=== PATIENT | female | born 1990 | race African-American/Black ===

== ENCOUNTER 2024-05-03 13:03 | Emergency (ER) | payer OTHER, SELFPAY ==
[2024-05-03 13:09] VITALS: BP 154/98
[2024-05-03 13:47] LABS: % Basophils 0.7 % (0-2); % Eosinophils 0.2 % (0-6); % Immature Granulocytes 0.2 % (0-0.5); % Lymphocytes 27.4 % (20.5-51.1); % Monocytes 9.5 % (1.7-9.3); Absolute Lymphocytes 1.2 10^3/uL (1.2-3.4); Absolute Monocytes 0.4 10^3/uL (0.1-0.6); Absolute Neutrophils 2.6 10^3/uL (1.4-6.5); Hematocrit 46.5 % (37.0-47.0); Hemoglobin 15.4 g/dL (12.0-16.0); Mean Corp Hgb Conc. 33.1 g/dL (33.0-37.0); Mean Corpuscular Hgb 26.6 pg (27.0-31.0); Mean Corpuscular Volume 80.3 fL (81.0-99.0); Nucleated Red Blood Cells % 0 %; Platelet Count 281 10^3/uL (130-400); Red Blood Cell Count 5.79 10^6/uL (4.20-5.40); Red Cell Dist. Width 13.5 % (11.5-14.5); White Blood Cell Count 4.2 10^3/uL (4.8-10.8)
[2024-05-03 13:59] LABS: COVID-19 Antigen Positive (Negative)
--- NOTE | 2024-05-03 16:20 | EDRN ---
Addendum entered by mAinta Flores RN 05/03/24 18:27:
Serge PABLO saw pt not Vishal PABLO.
Original Note:
Vishal PABLO in to see pt at this time.
--- NOTE | 2024-05-03 16:28 | ED.GENMED ---
History of Present Illness
<Deepthi Glass PA-C - Last Filed: 05/04/24 12:41>
General
Chief Complaint: Fever
Source: patient
Exam Limitations: none
Time Seen by Provider: 05/03/24 16:00
Nursing documentation reviewed up to this point in time: agreed with
History of Present Illness
History of Present Illness:
Patient is a 34 year old female presenting to the emergency department via ems for evaluation of flu-like symptoms for the past 5 days. Patient reports feeling unwell over the past week although worse today. She describes headache, nasal
congestion, cough. She does have some mild discomfort in her chest with breathing. She also has sore throat and generalized bodyaches. No true shortness of breath. Temp of 99 point today. Denies any GI upset including nausea, vomiting,
diarrhea. No lower extremity edema or swelling.
Patient does note that her had similar symptoms earlier in the week
Review of Systems
<Deepthi Glass PA-C - Last Filed: 05/04/24 12:41>
Review of Systems
Allergies reviewed?: Yes
All Other Systems: ROS reviewed and negative except as documented in HPI and ROS
Phy Exam
<Deepthi Glass PA-C - Last Filed: 05/04/24 12:41>
Physical Exam
Physical Exam:
Vitals: Hypertensive, otherwise stable vital signs. Afebrile
General: Patient is in no acute distress
Skin: Warm and dry, no rashes or lesions
Head: Normocephalic, atraumatic
Eyes: Sclera nonicteric. EOMs intact. No nystagmus.
Throat: No tonsillar edema or exudates. Uvula midline. Protecting airway
Neck: Normal ROM, no cervical spine tenderness, no meningismus
Cardiac: Regular rate and rhythm, no murmurs.
Pulm: Normal respiratory effort, no wheezes, rales, rhonchi heard on exam. O2 saturation 99 on room air.
Abdomen: Abdomen soft. No abdominal tenderness.
Extremities: No evidence of cyanosis or edema. Palpable DP pulses bilaterally
Neuro: AAOx3. Grossly intact.
Psychiatric: Normal affect.
Sepsis
<Deepthi Glass PA-C - Last Filed: 05/04/24 12:41>
Sepsis Screening
Sepsis Assessment: Sepsis Ruled Out
Sepsis Screen
Sepsis Screen: Sepsis Ruled Out
Date: 05/03/24
Time: 16:30
Course
<Deepthi Glass PA-C - Last Filed: 05/04/24 12:41>
Orders/Labs/Results
Orders:
Orders
05/03/24 13:13
Test Result ONCE
05/03/24 13:23
CBC/With Diff [Complete Blood Count/With Diff] Urgent
COVID-19 Antigen Urgent
Source: Nasal Swab
Influenza A+B Rapid Molecular Urgent
ABHIJIT Source: Nasal Swab
Specimen Description:
05/03/24 16:23
0.9% Sodium Chloride 1000 ml [Nss] 1,000 ml IV BOLUS
Ketorolac [Toradol] 15 mg IV NOW STA
CR Chest - 2 Views Urgent
Comment: COVID +
Reason For Exam: chest discomfort, cough
05/03/24 16:25
Test Result ONCE
05/03/24 16:53
Basic Metabolic Panel Urgent
HCG, Serum Qualitative Screen Urgent
05/03/24 17:11
Electrocardiogram (*1) Urgent
Reason for Study: Chest Pain
EKG- Treatment ONCE
05/03/24 18:04
Troponin I Urgent
Abnormal Lab Results
05/03/24 05/03/24
13:23 16:53
WBC 4.2 L 10^3/uL
(4.8-10.8)
RBC 5.79 H 10^6/uL
(4.20-5.40)
MCV 80.3 L fL
(81.0-99.0)
MCH 26.6 L pg
(27.0-31.0)
MPV 11.0 H fL
(7.4-10.4)
Monocytes % 9.5 H %
(1.7-9.3)
Carbon Dioxide 32 H mmol/L
(22-30)
Glucose 116 H mg/dl
(70-99)
SARS-CoV-2 Antigen Positive A
(Negative)
05/03/24 13:23
05/03/24 16:53
Vital Signs
Initial and Last Documented VS:
Initial Vital Signs
Temp Pulse Resp BP Pulse Ox
99.9 F 91 16 154/98 98
05/03/24 13:09 05/03/24 13:09 05/03/24 13:09 05/03/24 13:09 05/03/24 13:09
Last Documented Vital Signs
Temp Pulse Resp BP Pulse Ox
99.6 F 88 18 171/105 99
05/03/24 17:03 05/03/24 17:03 05/03/24 17:03 05/03/24 17:03 05/03/24 17:03
<Quinn Wiley MD - Last Filed: 05/03/24 17:16>
Orders/Labs/Results
Orders:
Orders
05/03/24 13:13
Test Result ONCE
05/03/24 13:23
CBC/With Diff [Complete Blood Count/With Diff] Urgent
COVID-19 Antigen Urgent
Source: Nasal Swab
Influenza A+B Rapid Molecular Urgent
ABHIJIT Source: Nasal Swab
Specimen Description:
05/03/24 16:23
0.9% Sodium Chloride 1000 ml [Nss] 1,000 ml IV BOLUS
Ketorolac [Toradol] 15 mg IV NOW STA
CR Chest - 2 Views Urgent
Comment: COVID +
Reason For Exam: chest discomfort, cough
05/03/24 16:25
Test Result ONCE
05/03/24 16:53
Basic Metabolic Panel Urgent
HCG, Serum Qualitative Screen Urgent
05/03/24 17:11
Electrocardiogram (*1) Urgent
Reason for Study: Chest Pain
EKG- Treatment ONCE
05/03/24 18:04
Troponin I Urgent
Abnormal Lab Results
05/03/24 05/03/24
13:23 16:53
WBC 4.2 L 10^3/uL
(4.8-10.8)
RBC 5.79 H 10^6/uL
(4.20-5.40)
MCV 80.3 L fL
(81.0-99.0)
MCH 26.6 L pg
(27.0-31.0)
MPV 11.0 H fL
(7.4-10.4)
Monocytes % 9.5 H %
(1.7-9.3)
Carbon Dioxide 32 H mmol/L
(22-30)
Glucose 116 H mg/dl
(70-99)
SARS-CoV-2 Antigen Positive A
(Negative)
05/03/24 13:23
05/03/24 16:53
Vital Signs
Initial and Last Documented VS:
Initial Vital Signs
Temp Pulse Resp BP Pulse Ox
99.9 F 91 16 154/98 98
05/03/24 13:09 05/03/24 13:09 05/03/24 13:09 05/03/24 13:09 05/03/24 13:09
Last Documented Vital Signs
Temp Pulse Resp BP Pulse Ox
99.6 F 88 18 171/105 99
05/03/24 17:03 05/03/24 17:03 05/03/24 17:03 05/03/24 17:03 05/03/24 17:03
<Deepthi Glass PA-C - Last Filed: 05/04/24 12:41>
MDM/Problems Addressed
Differential Diagnosis Includes:
Not limited to: Viral illness, pneumonia, dehydration, myocarditis, etc.
MDM/Problems Addressed:
34 female presenting with 5 days of viral URI symptoms, worse today. Hypertensive, otherwise stable vital signs. Afebrile. Physical exam as above. basic labs initiated in triage which show mild leukopenia. Patient positive for COVID which likely
explains majority of her symptoms. Influenza negative. Will check EKG, troponin given mild chest pain. Will check chest x-ray. Will treat headache with fluids, Toradol. Will closely monitor and reassess
Update: Troponin undetectable. EKG without any acute ischemic changes. Chest x-ray shows no acute abnormalities, no pneumonia. On reassessment�patient does say headache is much more dull although still mildly present. Ultimately�symptoms
consistent with COVID viral infection. No indication of associated pneumonia. Patient not tachycardic or hypoxic. Feel patient is stable for discharge home with supportive care, primary care follow-up. Advised p.o. fluids, Tylenol/Motrin as
needed for body aches, sore throat. Return precautions discussed.
Chronic conditions affecting care:
Hypertension
Acute Exacerbation and/or Progression of Chronic Illness:
Acutely hypertensive
<Deepthi Glass PA-C - Last Filed: 05/04/24 12:41>
*Radiology
Radiology exam reviewed: preliminary read by ED provider (Chest x-ray reviewed by nd-no acute abnormality) and radiology read reviewed
*Pulse Oximetry
Patient hypoxic: no
*EKG
Interpreted by ED Provider?: Yes
EKG Intrepretation Date: 05/03/24
Interpretation: normal
Comparison EKG: no comparison EKG present
Heart Rate: 81
Rate: normal
Rhythm: sinus
[place]: normal axis
Interval: normal QT interval
QRS Pattern: normal QRS
Ischemia: no ischemia
*Well Site Drilling Engineer Interpretation
Rate: Well Site Drilling Engineer- N/A
*Critical Care Note
Total Time (30-74mins, 75-104mins- exclusive of procedures): Not Applicable
ED Attending Note
<Deepthi Glass PA-C - Last Filed: 05/04/24 12:41>
-
Portions of this chart may have been created with voice recognition software.� Occasional wrong word or��sound alike� substitutions may have occurred due to the inherent limitations of voice recognition software.
<Quinn Wiley MD - Last Filed: 05/03/24 17:16>
ED Attending Note
Patient seen and examined by attending physician: Yes
ED Attending Note:
I have seen and evaluated the patient with a [id number] encounter. I have spoken to the advance practicer provider and involved in the medical history, the physical exam, medical decision making.
Evaluation and management service: agree unless noted differently below.
Results interpretation: agree unless noted differently below.
Focused HPI: 34-year-old female with past medical history of hypertension presents to the ER for evaluation of flulike illness. Patient reports she has been sick for about a week but yesterday started to feel bit worse. She says she has had
fatigue, myalgias, cough, congestion, sore throat, tactile fever. She says she has had a headache. She tells me that she has had some chest pain. She denies any shortness of breath outside the setting of some mild dyspnea with coughing fits. She
says that after symptoms were worsening yesterday decided she should come to the ER for evaluation. She has not had any GI issues�denies any nausea, vomiting, diarrhea.
Physical exam: Awake alert no distress. Hypertensive otherwise normal vitals. She has no cardiac rubs gallops or murmurs. Lungs clear to auscultation bilaterally although she did have occasional hacking cough during lung auscultation. Mucous
membranes are moist, no tonsillar erythema or exudate.
Medical Decision Makin-year-old female presents to the ER for evaluation of flulike illness. Labs sent off including a CBC which shows marginal leukopenia, CMP pending, COVID was positive which is likely etiology of her symptoms. She did
report some chest pain added troponin and EKG as well as a chest x-ray. Will treat symptomatically and hydrate. Likely stable for discharge if workup negative for emergent pathology.
Discharge Plan
Departure
Patient Disposition: Home (Routine Discharge)
Date of Disposition: 05/03/24
Time of Disposition: 18:48
Patient with high blood pressure during this ER visit?: Yes
Condition: Good
Covid-19: Confirmed COVID-19
Discharge Problem:
COVID-19
Instructions: COVID-19 - ED discharge instructions, BLOOD PRESSURE
Referrals:
Carmelita Sood CRNP [Family Provider] - Follow up in 2-3 days
Stand Alone Forms: Return to Work
Activity Restrictions/Additional Instructions:
Return to the emergency department with any high fevers, severe headache, changes in mental status, chest pain, shortness of breath, worsening in current symptoms, or any other concerns
-As discussed your COVID test was positive while in the emergency department today. This likely explains all of your symptoms.
-Is important for you to stay well-hydrated. Continue to take Tylenol and/or Motrin as needed for body aches and fever.
-Follow-up with your primary care provider for further evaluation/management and to ensure that symptoms are improving
Monitor your symptoms closely return to the emergency department any acute worsening/new symptoms or any other concerns
Interventions
Interventions:
*Risk Screen - Suicide Last Done: 05/03/24 13:09
*General Assessment Last Done: 05/03/24 17:09
*Neglect/Abuse Screening Last Done: 05/03/24 13:09
ED- Fall Risk Assessment Last Done: 05/03/24 17:09
*ED COVID-19 Vaccine History Last Done: 05/03/24 17:09
*Nursing Disposition Last Done: 05/03/24 19:15
ED- Neurological Assessment Last Done: 05/03/24 17:09
ED-Skin Assessment Last Done: 05/03/24 17:09
Discharge Date and Time
Discharge Date/Time: 05/03/24 19:15
Print Language: TAIWANESE
[2024-05-03] MEDS: NSS 1000 IV (16:59)
[2024-05-03] MEDS: TORADOL 15 MG IV (16:59)
[2024-05-03 17:03] VITALS: BP 171/105
[2024-05-03 17:06] VITALS: BMI 41.7
--- NOTE | 2024-05-03 17:07 | EDRN ---
Dr. Wiley in room w/ pt at this time.
--- NOTE | 2024-05-03 17:07 | EDRN ---
Pt has been feeling bad for about a week and last night got worse. Pt has headache, on and off nausea, sore throat, body aches, cough (if coughs alot has SOB). Dr. Wiley in room w/ pt.
[2024-05-03 17:19] LABS: HCG, Serum Qualitative Screen Negative
[2024-05-03 17:22] LABS: Blood Urea Nitrogen 10 mg/dl (7-17); Calcium 8.8 mg/dl (8.4-10.2); Carbon Dioxide 32 mmol/L (22-30); Chloride 100 mmol/L (98-107); Estimated Creatinine Clearance > 125 ml/min; Glucose 116 mg/dl (70-99); Potassium 3.6 mmol/L (3.5-5.1); Sodium 139 mmol/L (135-145); eGFR > 60.00
[2024-05-03 18:41] LABS: Troponin I < 0.012 ng/ml
== END 2024-05-03 19:15 | disposition home or self-care (01) ==
LOC: EMR 13:03
PROVIDERS: Emergency Medicine; Physician Assistant; EMERGENCY PHYSICIAN Emergency Medicine; FAMILY PHYSICIAN Nurse Practitioner Primary Care
DX: U07.1 COVID-19 (principal)
CPT/HCPCS: 99285; 96374; 96361 ×2; 71046; 80048; 84484; 84703; 85025; 87502; 87811; 93005

== ENCOUNTER 2024-10-06 22:22 | Emergency (ER) | payer OTHER, SELFPAY ==
[2024-10-06 22:25] VITALS: BP 145/89
[2024-10-06 22:42] VITALS: BP 140/79
--- NOTE | 2024-10-06 23:12 | ED.GENMED ---
History of Present Illness
Rajeshlt;Starla Buchanan PA-C - Last Filed: 10/07/24 02:17>
General
Chief Complaint: Abdominal Pain
Source: patient
Exam Limitations: none
Time Seen by Provider: 10/06/24 22:59
Nursing documentation reviewed up to this point in time: agreed with
History of Present Illness
History of Present Illness:
Note:
CHIEF COMPLAINT(S)
Pelvic pain and heavy bleeding.
HISTORY OF PRESENT ILLNESS
The patient is a 34-year-old female with a known history of polycystic ovary syndrome (PCOS) who presents with pelvic pain and heavy vaginal bleeding. The pain started at 9 a.m. today, and the patient describes it as located in the pelvic region.
She tried acetaminophen with codine which took the edge off of the pain. The bleeding began last week with spotting and worsened yesterday, becoming very heavy today. The patient does not recall when her last menstrual period was. The patient
reports going through nearly a full pack of seven sanitary briefs since 9 a.m. this morning. She denies any burning with urination, fever, or pain radiating to the back. No nausea or vomiting was reported. The patient states she has no other known
medical problems.
Her last period was 11 years ago. She follows with [facility].
PHYSICAL EXAM
Nursing notes reviewed and vital signs reviewed.
General: Patient is well appearing and in no acute distress; non-toxic
Skin: Warm and dry, no rashes or lesions
Head: Normocephalic, atraumatic
Eyes: Sclera non-icteric. EOMs intact.
Cardiac: Regular rate and rhythm, no murmurs
Pulm: Normal respiratory effort, no wheezes, or rhonchi
Abdomen: Abdomen is soft and non-tender to palpation
Genitourinary: Pelvic: Adnexal tenderness to palpation bilaterally. External genitalia normal appearing without lesions, ulcerations, or adenopathy. Vaginal vault without lesions, ulcerations; active vaginal bleeding noted, pooling of blood and
clots around the cervix. Cervix appears normal to inspection without lesions. No cervical motion tenderness
Neuro: CN II-XII intact, no focal neurologic deficits.
Psychiatric: Appropriate mood and affect.
PLAN
1. Initiate intravenous access for rehydration and medication administration.
2. Administer pain medication.
3. Obtain blood work.
4. Schedule an urgent ultrasound of the pelvic region.
5. Monitor bleeding and consider gynecological consultation if bleeding persists or worsens.
DIFFERENTIAL DIAGNOSIS
The Differential Diagnosis includes, in no particular order and is not limited to:
1. Polycystic Ovary Syndrome exacerbation
2. Dysfunctional uterine bleeding
3. Endometrial hyperplasia
4. Endometriosis
5. Uterine fibroids
6. Ovarian cyst rupture
7. Pelvic inflammatory disease
8. Ectopic
9. Coagulation disorder
10. Cervical polyp
CHART REVIEW
-reviewed 05/03/24, patient seen for upper respiratory symptoms, diagnosed with COVID
MDM/DISPOSITION
34-year-old female with a history of PCOS has not caught a period in over 11 years presents emergency department today with concerns of heavy vaginal bleeding and pelvic pain. She has not . Her ultrasound revealed a mildly heterogenous
endometrial thickening measuring 1.6 cm in thickness with focal hemorrhagic clot within the lower uterine segment. There also was a hemorrhagic cyst in the right ovary. Suspect dysmenorrhea/PCOS exacerbation. Patient states that she recently
started a weight loss medication and states that she has been losing weight so this may explain why her period has returned. Did stress importance of following up with her PEDIATRIC DENTAL HYGIENIST. Considering the amount of bleeding, we will initiate Lysteda.
Patient stable for discharge.
UPDATE
11:35 pm-- Patient more comfortable after pain mediation, was able to perform pelvic exam
Review of Systems
<Starla Buchanan PA-C - Last Filed: 10/07/24 02:17>
Review of Systems
All Other Systems: ROS reviewed and negative except as documented in HPI and ROS
Phy Exam
<Starla Buchanan PA-C - Last Filed: 10/07/24 02:17>
Physical Exam
Physical Exam:
see hpi
Course
<Starla Buchanan PA-C - Last Filed: 10/07/24 02:17>
Orders/Labs/Results
Orders:
Orders
10/06/24 23:01
, Urine Qualitative Screen [HCG, Urine Qualitative Screen] Urgent
10/06/24 23:02
Urinalysis Reflex To Culture Urgent
Test Result ONCE
10/06/24 23:09
0.9% Sodium Chloride 500 ml [Nss] 500 ml IV BOLUS
HYDROmorphone [Dilaudid] 0.5 mg IV NOW STA
10/06/24 23:26
ABO2 Urgent
BBK Wristband Number:
Associate notified that ABO2 has been ordered: AYO GUILLEN
Date: 10/07/24
Time: 01:19
Roto [employer] Press Operator ID: [id number]
Basic Metabolic Panel Urgent
Comment: NO K
Complete Blood Count/With Diff Urgent
HCG, Serum Qualitative Screen Urgent
Comment: ADD ON
10/06/24 23:36
US Pelvis W Transvag Combined Urgent
Comment:
Reason For Exam: severe bilateral adenexal pain
10/06/24 23:39
Add On- LAB Urgent
Tests Added?: BETA HCG QUAL
10/06/24 23:50
Type+Screen Routine
Doodle MobileK Wristband Number:
10/07/24 00:58
Ketorolac [Toradol] 30 mg IV NOW STA
Tranexamic Acid [Cyklokapron] 650 mg PO NOW STA
Abnormal Lab Results
10/06/24
23:26
MCV 79.4 L fL
(81.0-99.0)
MPV 11.3 H fL
(7.4-10.4)
Chloride 110 H mmol/L
(98-107)
Carbon Dioxide 21 L mmol/L
(22-30)
Glucose 100 H mg/dl
(70-99)
10/06/24 23:26
10/06/24 23:26
Vital Signs
Initial and Last Documented VS:
Initial Vital Signs
Temp Pulse Resp BP Pulse Ox
98.7 F 70 16 145/89 98
10/06/24 22:25 10/06/24 22:25 10/06/24 22:25 10/06/24 22:25 10/06/24 22:25
Last Documented Vital Signs
Temp Pulse Resp BP Pulse Ox
98.1 F 68 16 126/76 98
10/07/24 02:02 10/07/24 02:02 10/07/24 02:02 10/07/24 02:00 10/07/24 02:02
<Shyann Espinal, DO - Last Filed: 10/07/24 01:12>
Orders/Labs/Results
Orders:
Orders
10/06/24 23:01
, Urine Qualitative Screen [HCG, Urine Qualitative Screen] Urgent
10/06/24 23:02
Urinalysis Reflex To Culture Urgent
Test Result ONCE
10/06/24 23:09
0.9% Sodium Chloride 500 ml [Nss] 500 ml IV BOLUS
HYDROmorphone [Dilaudid] 0.5 mg IV NOW STA
10/06/24 23:26
ABO2 Urgent
BBK Wristband Number:
Associate notified that ABO2 has been ordered: AYO GUILLEN
Date: 10/07/24
Time: 01:19
Roto [employer] Press Operator ID: [id number]
Basic Metabolic Panel Urgent
Comment: NO K
Complete Blood Count/With Diff Urgent
HCG, Serum Qualitative Screen Urgent
Comment: ADD ON
10/06/24 23:36
US Pelvis W Transvag Combined Urgent
Comment:
Reason For Exam: severe bilateral adenexal pain
10/06/24 23:39
Add On- LAB Urgent
Tests Added?: BETA HCG QUAL
10/06/24 23:50
Type+Screen Routine
BBK Wristband Number:
10/07/24 00:58
Ketorolac [Toradol] 30 mg IV NOW STA
Tranexamic Acid [Cyklokapron] 650 mg PO NOW STA
Abnormal Lab Results
10/06/24
23:26
MCV 79.4 L fL
(81.0-99.0)
MPV 11.3 H fL
(7.4-10.4)
Chloride 110 H mmol/L
(98-107)
Carbon Dioxide 21 L mmol/L
(22-30)
Glucose 100 H mg/dl
(70-99)
10/06/24 23:26
10/06/24 23:26
Vital Signs
Initial and Last Documented VS:
Initial Vital Signs
Temp Pulse Resp BP Pulse Ox
98.7 F 70 16 145/89 98
10/06/24 22:25 10/06/24 22:25 10/06/24 22:25 10/06/24 22:25 10/06/24 22:25
Last Documented Vital Signs
Temp Pulse Resp BP Pulse Ox
98.1 F 68 16 126/76 98
10/07/24 02:02 10/07/24 02:02 10/07/24 02:02 10/07/24 02:00 10/07/24 02:02
<Starla Buchanan PA-C - Last Filed: 10/07/24 02:17>
*Pulse Oximetry
SaO2: 98
Oxygen Mode of Delivery: Room air
Patient hypoxic: no
*Critical Care Note
Total Time (30-74mins, 75-104mins- exclusive of procedures): Not Applicable
ED Attending Note
<Starla Buchanan PA-C - Last Filed: 10/07/24 02:17>
-
Portions of this chart may have been created with voice recognition software.� Occasional wrong word or��sound alike� substitutions may have occurred due to the inherent limitations of voice recognition software.
<Shyann Espinal DO - Last Filed: 10/07/24 01:12>
ED Attending Note
Patient seen and examined by attending physician: Yes
I performed a history and physical exam of patient and discussed management with resident, I reviewed resident's note and agree with documented findings and plan of care.: Yes
ED Attending Note:
34-year-old female with history of hypertension, PCOS, follows with [facility]. Reports amenorrhea for approximately 13 years but then began with some vaginal spotting 1 week ago, heavy vaginal bleeding accompanied with moderate crampy
pelvic pain today. No dizziness nor lightheadedness. No fever nor chills. No nausea nor vomiting.
Patient appears moderately uncomfortable however vital signs within normal limits, without tachycardia nor significant hypertension nor hypotension. Afebrile.
Abdomen is obese, soft, moderate tenderness suprapubic without rebound or guarding.
Concern for dysmenorrhea/menometrorrhagia, ectopic , ovarian torsion, exacerbation of PCOS.
Labs are unremarkable with normal CBC, unremarkable chemistries. hCG is negative.
Pelvic ultrasound shows mildly heterogenous echogenic avascular endometrial thickening or hemorrhage measuring up to 1.6 cm in thickness. Focal hemorrhagic clot within the lower uterine segment measuring 3 x 2 cm. Trace free fluid in the pelvis.
There is an enlarged right ovary containing a 4 cm hemorrhagic cyst. Normal ovarian arterial and venous waveforms bilaterally. No evidence of torsion.
Has been given an IV dose of Dilaudid. Will trial small IV dose of Toradol for pain as well as initiate TXA for vaginal bleeding.
Discharge Plan
Departure
Patient Disposition: Home (Routine Discharge)
Date of Disposition: 10/07/24
Time of Disposition: 01:34
Patient with high blood pressure during this ER visit?: Yes
Condition: Good
Discharge Problem:
Abnormal uterine bleeding (AUB), Pelvic pain, Hemorrhagic cyst of ovary
Instructions: Polycystic ovary syndrome, Painful periods, BLOOD PRESSURE
Prescriptions:
New
tranexamic acid 650 mg tablet
1,300 mg PO TID 5 Days Qty: 30 0RF
ibuprofen 600 mg tablet
600 mg PO Q6H PRN (Reason: Pain) Qty: 14 0RF
Referrals:
Carmelita Sood CRNP [Family Provider]
Stand Alone Forms: Return to Work
Activity Restrictions/Additional Instructions:
TXA has been sent to your pharmacy. Please take 1300 mg 3 times daily for 5 days.
Please call your PEDIATRIC DENTAL HYGIENIST later today to schedule follow-up appointment.
PLEASE RETURN TO THE EMERGENCY DEPARTMENT SHOULD YOU DEVELOP ACUTE WORSENING OF SYMPTOMS, PERSISTENT BLEEDING, LIGHTHEADEDNESS DIZZINESS OR LOSS OF CONSCIOUSNESS, CHEST PAIN OR SHORTNESS OF BREATH, OR ANY OTHER SIGNS OR SYMPTOMS WORRISOME TO YOU.
Interventions
Interventions:
*Risk Screen - Suicide Last Done: 10/06/24 22:27
*General Assessment Last Done: 10/06/24 23:00
*Neglect/Abuse Screening Last Done: 10/06/24 22:27
*ED- Fall Risk Assessment Last Done: 10/06/24 23:38
*ED COVID-19 Vaccine History Last Done: 10/06/24 23:38
ME-Xnkwkm-Mdcosigbyh Assessment Last Done: 10/06/24 22:39
Discharge Date and Time
Print Language: VINCENTIAN
[2024-10-06] MEDS: DILAUDID 0.5 MG IV (23:21)
[2024-10-06] MEDS: NSS 500 IV (23:25)
[2024-10-06 23:34] LABS: Hematocrit 40.8 % (37.0-47.0); Hemoglobin 14.3 g/dL (12.0-16.0); Mean Corp Hgb Conc. 35.0 g/dL (33.0-37.0); Mean Corpuscular Volume 79.4 fL (81.0-99.0); Nucleated Red Blood Cells % 0 %; Platelet Count 296 10^3/uL (130-400); Red Cell Dist. Width 13.2 % (11.5-14.5)
[2024-10-06 23:51] LABS: Blood Urea Nitrogen 10 mg/dl (7-17); Calcium 8.6 mg/dl (8.4-10.2); Carbon Dioxide 21 mmol/L (22-30); Chloride 110 mmol/L (98-107); Glucose 100 mg/dl (70-99); Sodium 137 mmol/L (135-145); eGFR > 60.00
[2024-10-07 00:13] LABS: HCG, Serum Qualitative Screen Negative
[2024-10-07] MEDS: TORADOL 30 MG IV (01:04)
[2024-10-07] MEDS: CYKLOKAPRON 650 MG PO (01:11)
[2024-10-07 02:00] VITALS: BP 126/76
== END 2024-10-07 02:17 | disposition home or self-care (01) ==
LOC: EMR 22:22
PROVIDERS: Physician Assistant; EMERGENCY PHYSICIAN Emergency Medicine; FAMILY PHYSICIAN Nurse Practitioner Primary Care
DX: N93.9 Abnormal uterine and vaginal bleeding, unspecified (principal); E28.2 Polycystic ovarian syndrome; R10.2 Pelvic and perineal pain
CPT/HCPCS: 99284; 96374; 96375; 76830; 76856; 80048; 84703; 85025; 86850; 86900; 86901

== ENCOUNTER 2024-10-10 20:07 | Emergency (ER) | payer OTHER, SELFPAY ==
[2024-10-10 20:11] VITALS: BP 141/99
[2024-10-10 20:39] LABS: Hematocrit 42.6 % (37.0-47.0); Hemoglobin 14.5 g/dL (12.0-16.0); Mean Corp Hgb Conc. 34.0 g/dL (33.0-37.0); Mean Corpuscular Volume 81.0 fL (81.0-99.0); Nucleated Red Blood Cells % 0 %; Platelet Count 336 10^3/uL (130-400); Red Cell Dist. Width 13.2 % (11.5-14.5)
[2024-10-10 20:46] LABS: HCG, Serum Qualitative Screen Negative
[2024-10-10 20:51] LABS: ALT (SGPT) 23 U/L (0-35); AST (SGOT) 19 U/L (14-36); Albumin 4.5 g/dl (3.5-5.0); Alkaline Phosphatase 75 U/L (38-126); Blood Urea Nitrogen 12 mg/dl (7-17); Calcium 9.0 mg/dl (8.4-10.2); Carbon Dioxide 28 mmol/L (22-30); Chloride 107 mmol/L (98-107); Glucose 97 mg/dl (70-99); Potassium 4.3 mmol/L (3.5-5.1); Sodium 140 mmol/L (135-145); Total Protein 7.3 g/dl (6.3-8.2); eGFR > 60.00
--- NOTE | 2024-10-10 22:51 | ED.GENMED ---
History of Present Illness
General
Chief Complaint: Abdominal Pain
Source: patient
Exam Limitations: none
Time Seen by Provider: 10/10/24 22:47
Nursing documentation reviewed up to this point in time: agreed with
History of Present Illness
History of Present Illness:
Note:
CHIEF COMPLAINT(S)
Lower abdominal pain and uterine bleeding.
HISTORY OF PRESENT ILLNESS
The patient is a 34-year-old female who presents with complaints of severe lower abdominal pain and heavy uterine bleeding. She reports that the pain started the day after her previous visit, which was on October 07, and it has persisted since then.
The pain is described as being across the entire lower abdomen. The patient has not experienced any fever, chills, nausea, vomiting, chest pain, or shortness of breath. She reports normal bowel movements and urination without difficulty. However,
she notes significant bleeding. 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 Currently, she has not been experiencing regular
menstruation and this episode is the first she has had in a long time. She has not yet had the opportunity to consult with her SILO OPERATOR regarding her current symptoms.
EXTERNAL RECORDS REVIEWED
The patient mentioned a previous ultrasound that was reportedly negative.
PAST SURGICAL HISTORY
The patient had a portion of her cervix removed around 2015 or 2016 due to cancerous cells.(LEEP)
PLAN
1. Obtain a computed tomography (CT) scan to further evaluate the abdominal pain and uterine bleeding.
2. Administer medication for pain and nausea management.
DIFFERENTIAL DIAGNOSIS
The Differential Diagnosis includes, in no particular order and is not limited to:
1. Uterine fibroids
2. Ovarian cysts
3. Endometriosis
4. Pelvic inflammatory disease
5. Ectopic
6. Adenomyosis
7. Cervical dysplasia
8. Ovarian torsion
9. Urinary tract infection
10. Gastrointestinal causes such as diverticulitis
CARE-UPDATE
10/10/24 - 22:58
US on 10/06/24 :Endometrial thickening noted with the presence of echogenic material indicative of clot formation. Presence of free fluid in the pelvis suggests potential underlying complication. Right ovary demonstrates a probable hemorrhagic cyst.
Further evaluation and monitoring recommended to assess stability and guide potential intervention.
CARE-UPDATE
10/11/24 - 02:16
The patients recent scans are normal. She is unsure of her OB-GYNs name but confirms she is based at [place]. Continued use of prescribed stomach acid medication, although symptoms persist without improvement in bleeding or reduction in severity.
No fever reported. Plan to discuss with OB-METAL PRODUCTS VIEWER for further assessment.
CARE-UPDATE
10/11/24 - 02:34
Consulted with gynecology, who advised no further action if the patient is not . Recommended providing the patient with a copy of her CT scan and results for follow-up with her OB. Prescribed Percocet for pain management over the next few
days.
Disposition:
SUMMARY OF ENCOUNTER
A 34-year-old female presented with complaints of lower abdominal pain and uterine bleeding persisting for over a week. She was previously seen and underwent an ultrasound, and was started on tranexamic acid (TXA). She follows up with an SILO OPERATOR at
[facility] and will have an appointment this week. During her visit today, a test was negative. Pain was relieved with oxycodone/acetaminophen.
DISPOSITION
Discharge in stable condition.
ASSESSMENT
Patient presents with lower abdominal pain and uterine bleeding, with a history of uterine leiomyoma and previous cervical procedure due to cancerous cells.
EMERGENCY TREATMENTS ADMINISTERED
Oxycodone/acetaminophen (Percocet) was provided for pain management.
MANAGEMENT OF THE PATIENTS CARE WAS DISCUSSED WITH
Consultation with SILO OPERATOR recommended close follow-up with her own hooker on.
PLAN
The patient will follow up with her SILO OPERATOR this week for further evaluation and management.
INDEPENDENT REVIEW OF LABS AND INTERPRETATION OF TESTS
My independent review of the test is negative.
FOLLOW-UP INSTRUCTIONS
The patient is advised to follow up with her SILO OPERATOR at [facility] this week.
MEDICATION RECONCILIATION
Oxycodone/acetaminophen was administered for pain relief during the visit.
MEDICAL DECISION MAKING
-Complexity of Data Reviewed: Chronic conditions affecting care [uterine leiomyoma, history of cervical dysplasia]. Differential diagnosis includes uterine fibroids, ovarian cysts, endometriosis, pelvic inflammatory disease, ectopic ,
adenomyosis, cervical dysplasia, ovarian torsion, urinary tract infection, gastrointestinal causes such as diverticulitis.
-Data:
Category 3
Discussion of management with SILO OPERATOR regarding further follow-up and evaluation plan.
-Risk:
Prescription medication management was used as part of the pain management strategy.
DIAGNOSIS
Lower abdominal pain (ICD-10: R10.30)
Abnormal uterine bleeding, unspecified (ICD-10: N93.9)
Review of Systems
Review of Systems
Allergies reviewed?: Yes
All Other Systems: ROS reviewed and negative except as documented in HPI and ROS
Constitutional: Reports no symptoms
EENT: Reports no symptoms
Respiratory: Reports no symptoms
Cardiac: Reports no symptoms
ABD/GI: Reports abdominal pain
: Reports bleeding
Musculoskeletal: Reports no symptoms
Skin: Reports no symptoms
Neurological: Reports no symptoms
Endocrine: Reports no symptoms
Hematologic/Lymphatic: Reports no symptoms
Psychiatric: Reports no symptoms
Phy Exam
General Physical Exam
General Presentation: moderate distress
General age: appears stated age
General Skin: warm and dry
General Habitus: normal
General Mental: alert
General Hydration: appears well hydrated
ENT Exam
ENT Exam: EOMI, pharynx normal, neck supple and normocephalic
Eye Exam
Eye Exam: PERRL, cornea clear and conjunctiva normal
Cardiovascular Exam
Cardiovascular Exam: regular rate/rhythm, no edema, no murmur and normal peripheral pulses
Pulmonary Exam
Pulmonary Exam: lungs clear, no respiratory distress, no rales, no crackles, no rhonchi, no stridor, no wheezing and no cough
Gastrointestinal Exam
Gastrointestinal Exam: normal bowel sounds, non tender, soft, no organomegaly, no pulsatile mass and non distended
Neurological Exam
Neurological Exam: alert, oriented x3, no motor deficits and speech normal
Musculoskeletal Exam
Musculoskeletal Exam: full ROM and no edema
Skin Exam
Skin Exam: normal color, warm/dry, no rash and no petechia
Psychiatric Exam
Psychiatric Exam: normal mood/affect
Course
Orders/Labs/Results
Orders:
Orders
10/10/24 20:14
Test Result ONCE
10/10/24 20:20
CMP [Comprehensive Metabolic Panel] Urgent
Complete Blood Count/With Diff Urgent
HCG, Serum Qualitative Screen Urgent
Comment: Notify provider if positive test present
10/10/24 22:58
HYDROmorphone [Dilaudid] 1 mg IV NOW STA
Ondansetron Injectable [Zofran] 4 mg IV NOW STA
10/11/24 00:00
CT Abd/pelvis W Iv Cont Urgent
Reason For Exam: lower abd pain
Abnormal Lab Results
10/10/24
20:20
WBC 4.1 L 10^3/uL
(4.8-10.8)
MPV 10.8 H fL
(7.4-10.4)
Monocytes % 9.4 H %
(1.7-9.3)
10/10/24 20:20
10/10/24 20:20
Vital Signs
Initial and Last Documented VS:
Initial Vital Signs
Temp Pulse Resp BP Pulse Ox
98.8 F 83 16 141/99 98
10/10/24 20:11 10/10/24 20:11 10/10/24 20:11 10/10/24 20:11 10/10/24 20:11
Last Documented Vital Signs
Temp Pulse Resp BP Pulse Ox
97.7 F 63 17 144/89 100
10/11/24 01:13 10/11/24 01:13 10/11/24 01:13 10/11/24 01:13 10/11/24 01:13
*Pulse Oximetry
SaO2: 98
Oxygen Mode of Delivery: Room air
Patient hypoxic: no
*Critical Care Note
Total Time (30-74mins, 75-104mins- exclusive of procedures): Not Applicable
ED Attending Note
-
Portions of this chart may have been created with voice recognition software.� Occasional wrong word or��sound alike� substitutions may have occurred due to the inherent limitations of voice recognition software.
Discharge Plan
Departure
Patient Disposition: Home (Routine Discharge)
Date of Disposition: 10/11/24
Time of Disposition: 02:37
Patient with high blood pressure during this ER visit?: Yes
Condition: Good
Discharge Problem:
Abdominal pain, Bleeding, uterine, dysfunctional
Instructions: Heavy periods - ED discharge instructions, Abdominal Pain
Prescriptions:
New
oxycodone-acetaminophen [Percocet] 5-325 mg tablet
1 tab PO Q6HPRN PRN (Reason: pain) Qty: 10 0RF
No Action
tranexamic acid 650 mg tablet
1,300 mg PO TID 5 Days Qty: 30 0RF
ibuprofen 600 mg tablet
600 mg PO Q6H PRN (Reason: Pain) Qty: 14 0RF
Referrals:
Carmelita Sood CRNP [Family Provider]
Activity Restrictions/Additional Instructions:
as discussed, please follow-up with your SILO OPERATOR at [facility]. Please bring the lab work and CD of your imaging studies with you.
Please continue take all medications as previously directed.
Thank You for choosing [facility].
It was a pleasure meeting you and taking part in your care. We hope for your continued healing and wellness.
Please read discharge instructions in their entirety. However, they are for general education and may not describe your exact diagnosis at discharge. Information on your ER visit and medical conditions were discussed with you along with appropriate
follow up information...
If indicated, please take your medications as instructed and indicated on discharge paperwork.
Please schedule a follow up appointment as directed. Call to schedule an appointment
Please return to the emergency department with ANY change in, persisting, or worsening of symptoms. If any of your symptoms do not improve, or persist, or become more severe within 6-12 hours, please return to the emergency department for further
care.
Please return to the emergency department if you develop a headache, neck pain/stiffness, fever greater than 100.4F, chest pain, shortness of breath, persistent nausea, vomiting, slurred speech, difficulty walking, numbness/tingling, weakness, signs
of infection or any other symptoms that are worrisome to you.
If you have any questions or concerns please do not hesitate to call the Hospital at or E-mail me directly at [email or web address]
Interventions
Interventions:
*Risk Screen - Suicide Last Done: 10/10/24 20:11
*General Assessment Last Done: 10/10/24 20:11
*Neglect/Abuse Screening Last Done: 10/10/24 20:11
*ED- Fall Risk Assessment Last Done: 10/10/24 23:18
*ED COVID-19 Vaccine History Last Done: 10/10/24 23:18
BM-Ptrsho-Tywzmjwmuh Assessment Last Done: 10/10/24 23:18
Discharge Date and Time
Print Language: TRISTANIAN
[2024-10-10] MEDS: ZOFRAN 4 MG IV (23:11)
[2024-10-10] MEDS: DILAUDID 1 MG IV (23:12)
[2024-10-10 23:17] VITALS: BMI 37.5
[2024-10-10 23:21] VITALS: BP 137/86
[2024-10-11 01:10] VITALS: BP 144/89
[2024-10-11 01:13] VITALS: BP 144/89
== END 2024-10-11 02:45 | disposition home or self-care (01) ==
LOC: EMR 20:07
PROVIDERS: Emergency Medicine; EMERGENCY PHYSICIAN Student in an Organized Health Care Education/Training Program; FAMILY PHYSICIAN Nurse Practitioner Primary Care
DX: R10.9 Unspecified abdominal pain (principal); N93.9 Abnormal uterine and vaginal bleeding, unspecified; Z86.018 Personal history of other benign neoplasm
CPT/HCPCS: 99284; 96374; 96375; 74177; 80053; 84703; 85025; Q9967

== ENCOUNTER 2025-03-17 09:24 | Emergency (ER) | payer OTHER, SELFPAY ==
[2025-03-17 10:00] VITALS: BP 142/78
--- NOTE | 2025-03-17 11:31 | ED.GENMED ---
History of Present Illness
General
Chief Complaint: Abdominal Symptoms
Time Seen by Provider: 03/17/25 11:26
History of Present Illness
History of Present Illness:
35-year-old female with history of hypertension, untreated, presents to the emergency department for evaluation of left lower quadrant abdominal pain radiating to the pelvis that began yesterday. Pain is intermittently sharp but constant otherwise.
Radiates to the pelvis into the low back. No associated fever, chills, sweats, nausea, vomiting, or diarrhea. No history of abdominal surgeries. No meds taken for pain today. Last menstrual cycle was 3 weeks ago
Review of Systems
Review of Systems
Allergies reviewed?: Yes
All Other Systems: ROS reviewed and negative except as documented in HPI and ROS
Phy Exam
Physical Exam
Physical Exam:
GEN: Well appearing, NAD, WDWN
HEENT: Oral mucosa moist, no scleral icterus
Cardiac: Regular rate
Lung: No respiratory distress, no tachypnea
Abdomen: Soft, focal tenderness in the left pelvic region/inguinal region, no palpable masses, no rigidity or peritoneal signs
MSK: No gross deformity or injuries
Skin: Good color, no pallor or jaundice, no rashes
Neuro: AO x3, moves all extremities freely
Psych: Calm, cooperative
Course
Orders/Labs/Results
Orders:
Orders
03/17/25 11:30
Ketorolac [Toradol] 15 mg IV NOW STA
US Pelvis W Transvag Combined Urgent
Comment:
Reason For Exam: L pelvic pain
03/17/25 11:31
Test Result ONCE
03/17/25 11:41
Complete Blood Count/No Diff Urgent
03/17/25 12:26
Morphine Sulfate 4 mg IV NOW STA
03/17/25 12:42
Comprehensive Metabolic Panel Urgent
HCG, Serum Qualitative Screen Urgent
03/17/25 13:35
Urinalysis Reflex To Culture Urgent
Date Specimen was Collected: 03/17/25
Time Specimen was Collected: 12:27
Urine Microscopic Reflex Cult Urgent
03/17/25 13:48
HYDROmorphone [Dilaudid] 0.5 mg IV NOW STA
Abnormal Lab Results
03/17/25 03/17/25
11:41 13:35
MCV 77.7 L fL
(81.0-99.0)
MCH 25.8 L pg
(27.0-31.0)
RDW 15.1 H %
(11.5-14.5)
MPV 11.1 H fL
(7.4-10.4)
Urine Bacteria (Reflex) Few A
(Negative)
Urine Albumin (Reflex) 1+ A
(Neg - Trace)
03/17/25 11:41
03/17/25 12:42
Vital Signs
Initial and Last Documented VS:
Initial Vital Signs
Temp Pulse Resp BP Pulse Ox
97.5 F 87 20 142/78 98
03/17/25 10:00 03/17/25 10:00 03/17/25 10:00 03/17/25 10:00 03/17/25 10:00
Last Documented Vital Signs
Temp Pulse Resp BP Pulse Ox
97.9 F 90 16 150/108 99
03/17/25 12:40 03/17/25 12:40 03/17/25 14:00 03/17/25 12:40 03/17/25 12:40
MDM/Problems Addressed
MDM/Problems Addressed:
Ultrasound reveals a hemorrhagic left ovarian cyst. Patient did require multiple doses of pain medication however eventually symptomatically improved. She is hemodynamically stable with a nonperitoneal exam, no indication for ENERGY TRADER consultation
emergently. She will follow-up with her outpatient ENERGY TRADER, discussed supportive care
*Pulse Oximetry
Patient hypoxic: no
*Critical Care Note
Total Time (30-74mins, 75-104mins- exclusive of procedures): Not Applicable
ED Attending Note
-
Portions of this chart may have been created with voice recognition software.� Occasional wrong word or��sound alike� substitutions may have occurred due to the inherent limitations of voice recognition software.
Discharge Plan
Departure
Patient Disposition: Home (Routine Discharge)
Date of Disposition: 03/17/25
Time of Disposition: 13:59
Patient with high blood pressure during this ER visit?: No
Discharge Problem:
Hemorrhagic cyst of left ovary
Instructions: Ovarian cyst - ED (DC)
Prescriptions:
New
oxycodone-acetaminophen [Percocet] 5-325 mg tablet
1 tab PO Q4HPRN PRN (Reason: pain) Qty: 12 0RF
ibuprofen 600 mg tablet
600 mg PO Q8H PRN (Reason: Pain) Qty: 20 0RF
No Action
tranexamic acid 650 mg tablet
1,300 mg PO TID 5 Days Qty: 30 0RF
ibuprofen 600 mg tablet
600 mg PO Q6H PRN (Reason: Pain) Qty: 14 0RF
oxycodone-acetaminophen [Percocet] 5-325 mg tablet
1 tab PO Q6HPRN PRN (Reason: pain) Qty: 10 0RF
Referrals:
Carmelita Sood CRNP [Family Provider]
Activity Restrictions/Additional Instructions:
Contact your SHREDDER TENDER PEAT at [facility] this afternoon for follow-up appointment
If your symptoms worsen or your pain is uncontrolled by medications do not hesitate to return to the emergency department
Interventions
Interventions:
*Risk Screen - Suicide Last Done: 03/17/25 09:26
*General Assessment Last Done: 03/17/25 09:26
*Neglect/Abuse Screening Last Done: 03/17/25 09:26
*ED COVID-19 Vaccine History Last Done: 03/17/25 12:01
*ED Influenza Vaccine History Last Done: 03/17/25 12:01
[facility] Fall Risk Assessment Tool Last Done: 03/17/25 12:01
*Nursing Disposition Last Done: 03/17/25 14:18
PQ-Safdiy-Iqrpncndhc Assessment Last Done: 03/17/25 12:02
Discharge Date and Time
Discharge Date/Time: 03/17/25 14:19
Print Language: IRAQI
[2025-03-17] MEDS: TORADOL 15 MG IV (11:48)
[2025-03-17 11:49] LABS: Hematocrit 38.6 % (37.0-47.0); Hemoglobin 12.8 g/dL (12.0-16.0); Mean Corp Hgb Conc. 33.2 g/dL (33.0-37.0); Mean Corpuscular Volume 77.7 fL (81.0-99.0); Platelet Count 254 10^3/uL (130-400); Red Cell Dist. Width 15.1 % (11.5-14.5)
[2025-03-17] MEDS: MORPHINE SULFATE 4 MG IV (12:31)
[2025-03-17 12:40] VITALS: BP 150/108
[2025-03-17 13:19] LABS: HCG, Serum Qualitative Screen Negative
[2025-03-17 13:28] LABS: ALT (SGPT) 16 U/L (0-35); AST (SGOT) 18 U/L (14-36); Albumin 4.2 g/dl (3.5-5.0); Alkaline Phosphatase 65 U/L (38-126); Blood Urea Nitrogen 14 mg/dl (7-17); Calcium 9.2 mg/dl (8.4-10.2); Carbon Dioxide 25 mmol/L (22-30); Chloride 106 mmol/L (98-107); Glucose 83 mg/dl (70-99); Potassium 4.1 mmol/L (3.5-5.1); Sodium 137 mmol/L (135-145); Total Protein 7.2 g/dl (6.3-8.2); eGFR > 60.00
[2025-03-17 13:43] LABS: Urine Character Clear (Clear)
[2025-03-17] MEDS: DILAUDID 0.5 MG IV (13:51)
[2025-03-17 14:23] LABS: Urine Squamous Cell 16-20 /LPF (Few)
[2025-03-17 14:24] LABS: Urine Red Blood Cell 0-2 /HPF (0-2); Urine White Cell 0-2 /HPF (0-5)
== END 2025-03-17 14:19 | disposition home or self-care (01) ==
LOC: EMR 09:24
PROVIDERS: Physician Assistant; EMERGENCY PHYSICIAN Emergency Medicine; FAMILY PHYSICIAN Nurse Practitioner Primary Care
DX: N83.292 Other ovarian cyst, left side (principal); I10 Essential (primary) hypertension
CPT/HCPCS: 96374; 96375; 99284; 76830; 76856; 80053; 81003; 81015; 84703; 85027